=== PATIENT | female | born 1995 | race Caucasian/White ===

== ENCOUNTER 2017-03-20 19:00 | Emergency (ER) | payer BC ==
--- NOTE | 2017-03-20 20:43 | ED Physician Documentation ---
History of Present Illness - Stated complaint Stated Complaint: NASAL PX/INFECTION - Chief complaint Chief Complaint: Heent - Additonal information Additional information: 22-year-old female with history of asthma presents to the emergency department with nasal congestion for 2 weeks. She also has ear pain, and a cough. She does not have wheezing or shortness of breath. She has had no fevers that she knows of. She is taking frequent [id number] symptomatic medications however. Review of Systems Constitutional: denies: Fever Eyes: denies: Loss of vision Ears: reports: Ear pain Nose: reports: Rhinorrhea / runny nose, Congestion, Sinus pressure / pain Throat: denies: Sore throat Cardiac: denies: Chest pain / pressure Respiratory: reports: Cough. denies: Dyspnea, Wheezing GI: denies: Nausea, Vomiting : denies: Dysuria Skin: denies: Rash Neurologic: reports: Reviewed and negative PD PAST MEDICAL HISTORY - Past Medical History Past Medical History: No Respiratory: Asthma - Past Surgical History Past Surgical History: No - Present Medications Home Medications: Ambulatory Orders Medication Instructions Recorded Confirmed Amox/Clav 875/125 [Augmentin] 1 each PO Q12H 5 Days #10 tablet 03/20/17 - Allergies Allergies/Adverse Reactions: Allergies Allergy/AdvReac Type Severity Reaction Status Date / Time Sulfa (Sulfonamide Allergy Hives Verified 03/20/17 19:04 Antibiotics) - Social History Does the pt smoke?: No Smoking Status: Never smoker Does the pt have substance abuse?: No - Immunizations Immunizations are current?: Yes - POLST Patient has POLST: No PD ED PE NORMAL - Vitals Vital signs reviewed: Yes - General General: Alert and oriented X 3, No acute distress - HEENT HEENT: PERRL, Moist mucous membranes, Pharynx benign - Neck Neck: Supple, no meningeal sign - Cardiac Cardiac: RRR, No murmur - Respiratory Respiratory: Clear bilaterally - Abdomen Abdomen: Soft, Non distended - Derm Derm: Warm and dry - Extremities Extremities: No deformity - Neuro Neuro: Alert and oriented X 3 - Psych Psych: Normal mood, Normal affect PD ED PE EXPANDED - HEENT HEENT: PERRL, L TM dull (? scarring vs. cerumen abutting TM), Pharynx normal, Other (ethmoid TTP ) Results - Vitals Vitals: Vital Signs - 24 hr 03/20/17 19:00 Temperature 36.9 C Heart Rate 98 Respiratory 16 Rate Blood Pressure 131/84 H O2 Saturation 100 Oxygen O2 Source Room air PD MEDICAL DECISION MAKING - ED course ED course: 22-year-old female presents the emergency department with 2 weeks of symptoms of sinusitis. Patient is afebrile however is taking antipyretics throughout the day so unclear whether she may have a fever without these. I warned her about taking many different [id number] remedies that may have Tylenol in them and to ensure that she is not taking more than 3000 mg. She has a benign exam with no neurologic findings or symptoms. Given the ongoing nature greater than 10 days of her symptoms she was treated with Augmentin for sinusitis. Departure - Departure Disposition: 01 Home, Self Care Clinical Impression: Sinusitis Condition: Good Instructions: ED Sinusitis Abx Tx Prescriptions: Amox/Clav 875/125 [Augmentin] 1 each PO Q12H 5 Days #10 tablet Comments: Continue to work to make an appointment with the primary care doctor in case her symptoms do not improve. Return to the emergency department if you have any new or worsening symptoms such as severe headache, fevers, chest pain, difficulty breathing.
[2017-03-20 20:52] LABS: HCG UR QUAL NEGATIVE
[2017-03-20] MEDS ORDERED: AMOX/CLAV 875 MG/125 MG TABLET PO STA (20:52)
[2017-03-20] MEDS ORDERED: AMOX/CLAV 875 MG/125 MG TABLET PO ONE (21:01)
[2017-03-20 21:11] VITALS: BP 126/75
== END 2017-03-20 21:09 | disposition home or self-care (01) ==
LOC: ED 19:00
DX: J32.9 Chronic sinusitis, unspecified (principal)
CPT/HCPCS: 81025; 99283; A9270